=== PATIENT | male | born 1995 | race Two or more races ===

== ENCOUNTER 2024-08-04 15:11 | Inpatient (IN) | payer OTHER, SELFPAY ==
[2024-08-04] MEDS: Nicotine Polacrilex 2 MG GUM 4 MG BUCCAL ×2 (16:32→20:02)
[2024-08-04] MEDS: Buprenorphine/Naloxone 8/2 mg FILM 1 FILM SUBLINGUAL ×2 (16:42→20:09)
[2024-08-04 16:47] VITALS: BP 137/82; PULSE 95; RESP 18; TEMP 36.5; O2SAT 99
--- NOTE | 2024-08-04 17:09 | PC.NURSE ---
Pt arrived at 1530 from [facility] where he self presented. Pt is hyperverbal, religiously preoccupied and somewhat of a poor historian during intake. Pt reports having an argument with grandmother, with whom he is living and has been kicked out. Pt reported he was planning to be homeless but father convinced him to seek help at a local hospital. Upon arrival pt reports Im not like the other people here, I dont have mental issues . Pt states he has been drinking heavily in an effort to ween himself off of prescribed suboxone. No other prescribed meds. Pt MCMAHAN positive for marijuana and suboxone. Pt reports lengthy IV drug use history and numerous detoxes, though not for several years. Upon arrival to unit to was initially irritable requesting not to talk to anyone until he felt comfortable here. Pt quickly became comfortable and agreed to all parts of admission, did not sign releases at this time. Pt declines flu shot.
[2024-08-04 19:51] VITALS: BP 138/77; PULSE 81; TEMP 36.2; O2SAT 100
[2024-08-04] MEDS: OLANZapine 5 MG TABLET PO (20:09)
[2024-08-04] MEDS: LORazepam 1 MG TABLET 2 MG PO (20:09)
[2024-08-05 08:30] VITALS: BP 113/58; PULSE 55; RESP 16; TEMP 36.4; O2SAT 100
[2024-08-05] MEDS: Buprenorphine/Naloxone 8/2 mg FILM 1 FILM SUBLINGUAL ×3 (08:32→21:47)
[2024-08-05] MEDS: Folic Acid 1 MG TABLET PO (08:33)
[2024-08-05] MEDS: Multivitamin TABLET 1 TAB PO (08:33)
[2024-08-05] MEDS: Thiamine HCL 100 MG TABLET PO (08:37)
--- NOTE | 2024-08-05 09:52 | P.HPPS_ITS ---
HPI Date of Service: 08/05/24 Chief Complaint: Depression, SI, polysubstance abuse disorder Sources of Information: patient interviewed, chart reviewed and crisis/core team assessment reviewed HPI Subjective Notes: Lang Warning and Conditional Voluntary Healthcare Proxy: No Guardianship: No Medical Problems Affecting Mental Status: No Narrative: Seen 10am, and 2pm 28 yo male, presented with depression and SI after being asked to leave the family home. This resulted in an arrest and 72 hour incarceration. Reports cannabis and alcohol daily. Hx of opiate use, ADHD, PTSD and disruptive mood dysregulation disorder. He is unmedicated except for Suboxone and refuses psychotropic medications for mental health issues. He has difficulty in interview, asks to meet with only one person at a time. Worries he will say the incorrect thing. We met with pt x 2 at this request today. Expresses anger, agitation. Wantes to feel calmer, organize his thoughts and decrease lability. Self-dialogues, I hope all of you here and your family suffers and you all suffer for eternity. Reports a significant incarceration history. Past Psychiatric History: IP: 2019 Hx of detox admits OP: Denies Suboxone is telehealth Medical Evaluation Reviewed: Yes [facility] Medical History (Updated 08/05/24 @ 19:21 by Therese Macias, SHANNAN) PTSD (post-traumatic stress disorder) Alcohol use disorder Persistent mood [affective] disorder, unspecified Opioid use disorder Narrative: Hepatitis C Asthma Family History: pt does not discuss Social History: pt does not discuss Substance History: opiates, cannabis, alcohol Trauma History: affirms severe childhood trauma Diagnostics Vital Signs (24Hr): Vital Signs - 24 hr 08/04/24 16:47 08/04/24 19:51 08/05/24 08:30 Temperature 97.7 F 97.1 F 97.6 F Pulse Rate 95 81 55 Respiratory Rate 18 16 Blood Pressure 137/82 138/77 113/58 L Pulse Oximetry 99 100 100 Oxygen Delivery Method Room Air Room Air Room Air Meds/Allergies Meds Home Medications ?Medication ?Instructions ?Recorded ?Confirmed ?Type buprenorphine 8 mg-naloxone 2 mg 1 film buccal TID 08/04/24 08/04/24 History sublingual film (Suboxone) Allergies Allergies Allergy/AdvReac Type Severity Reaction Status Date / Time No Known Allergies Allergy Verified 12/04/24 15:23 Mental Status Exam Mental Status Exam Patient Appearance: Appropriate Patient Orientation: Person, Place, Time and Situation Level of Consciousness: Alert Patient Behavior: Talkative and Poor Eye Contact Mood Description: Depressed and Angry Affect Description: Flat Patient Cognition Impaired: No Ability to Follow Directions: Good Speech Pattern: Spontaneous Speech Memory Description: Episodic Impaired Hallucinations: None Delusions: Not Present Perceptual Disturbances: Depersonalization and Derealization Thought Process: Rumination Thought Content: positive for Perseveration and positive for Suicidal Ideation Depressive Symptoms: Thoughts of /Suicide Judgement: Fair Assessment & Plan Assessment & Plan (1) Opioid use disorder: Status: Acute Code(s): F11.90 - Opioid use, unspecified, uncomplicated (2) Persistent mood [affective] disorder, unspecified: Status: Acute Code(s): F34.9 - Persistent mood [affective] disorder, unspecified (3) Alcohol use disorder: Status: Acute Code(s): F10.90 - Alcohol use, unspecified, uncomplicated (4) PTSD (post-traumatic stress disorder): Status: Acute Code(s): F43.10 - Post-traumatic stress disorder, unspecified Plan PTSD, Mood Disorder, Opioid Use Disorder, Alcohol Use Disorder. Admit, CV, 15 minute checks TDN submitted Encourage milieu Pt declines medication assessment Collateral contact Discharge aftercare planning. Patient educated on: therapeutic strategies Reason for continued inpatient stay Substantial Risk for: harm to self, harm to others and rapid decompensation Statement Statement: I have reviewed the history and physical and performed a pertinent examination on my patient. No changes have occurred unless specified. If the History and Physical was not performed prior to admission, the Hospitalist's service will be consulted for completing the admission physical. Time Spent With Patient Time: Total time managing care of this patient today ____ minutes.
[2024-08-05] MEDS: Nicotine Polacrilex 2 MG GUM 4 MG BUCCAL ×4 (10:04→16:46)
[2024-08-05] MEDS: LORazepam 1 MG TABLET PO (10:16)
[2024-08-05] MEDS: LORazepam 1 MG TABLET 2 MG PO ×3 (11:10→22:07)
[2024-08-05] MEDS: Acetaminophen 325 MG TABLET 650 MG PO (22:02)
[2024-08-06 01:45] VITALS: BP 120/61; PULSE 78; TEMP 36.6; O2SAT 99
[2024-08-06] MEDS: hydrOXYzine HCL 25 MG TABLET PO ×2 (01:48→19:07)
[2024-08-06] MEDS: Nicotine Polacrilex 2 MG GUM 4 MG BUCCAL ×7 (01:49→23:43)
[2024-08-06] MEDS: LORazepam 1 MG TABLET PO ×5 (02:18→23:51)
[2024-08-06 09:55] VITALS: BP 122/82; PULSE 86; RESP 16; TEMP 36.6; O2SAT 100
[2024-08-06] MEDS: Buprenorphine/Naloxone 8/2 mg FILM 1 FILM SUBLINGUAL ×3 (09:55→20:17)
[2024-08-06] MEDS: Multivitamin TABLET 1 TAB PO (09:55)
[2024-08-06] MEDS: Folic Acid 1 MG TABLET PO (09:55)
[2024-08-06] MEDS: Thiamine HCL 100 MG TABLET PO (09:55)
--- NOTE | 2024-08-06 10:30 | P.PNPSI_ITS ---
Subjective Subjective Date of Service: 08/06/24 Reason For Visit: Depression, SI, polysubstance abuse disorder Subjective Notes: Conditional Voluntary and 3 Day Healthcare Proxy: No Guardianship: No Medical Problems Affecting Mental Status: No Interim History: Labile. Wanting treatment, however, due to history, significant mistrust of others. Ambivalent Discussed medicine for PTSD, mood stabilization. Asked pt what may we do to help him meet his goals. He is unsure Outbursts today regarding some issues. Team is attempting to work with pt to assist and build alliance. TDN to 08/10. Ambivalent on retracting. Wanting to reconnect with [facility], file for Section 8, find therapy, replace addiction with healthier coping mechanisms Medication Compliance: No Side effects from medications: No Attending Groups: No Review of Systems Acute medical concerns: No Review of Systems Review of Systems Yes all other systems are reviewed and are negative Mental Status Exam Mental Status Exam Patient Appearance: Appropriate Patient Orientation: Person, Place, Time and Situation Level of Consciousness: Alert Patient Behavior: Talkative and Poor Eye Contact Mood Description: Depressed and Angry Affect Description: Flat Patient Cognition Impaired: No Ability to Follow Directions: Good Speech Pattern: Spontaneous Speech Memory Description: Episodic Impaired Hallucinations: None Delusions: Not Present Perceptual Disturbances: Depersonalization and Derealization Thought Process: Rumination Thought Content: positive for Perseveration Judgement: Good Diagnostics Vital Signs (24Hr): Vital Signs - 24 hr 08/06/24 01:45 Temperature 97.8 F Pulse Rate 78 Blood Pressure 120/61 Pulse Oximetry 99 Oxygen Delivery Method Room Air Medications Medications Current Medications Acetaminophen (Acetaminophen 325 Mg Tablet) 650 mg PO Q6H PRN PRN Reason: Headache/Pain Mild Scale (1-3) Last Admin: 08/05/24 22:02 Dose: 650 mg Al Hydroxide/Mg Hydroxide (Magnesium Hydrox/Alum Hydrox 30 Ml Oral.Susp) 30 ml PO Q6H PRN PRN Reason: Heartburn/Nausea Buprenorphine/Naloxone (Buprenorphine/Naloxone 8/2 Mg Film) 1 film SUBLINGUAL TID KIERRA Last Admin: 08/06/24 09:55 Dose: 1 film Folic Acid (Folic Acid 1 Mg Tablet) 1 mg PO DAILY KIERRA Last Admin: 08/06/24 09:55 Dose: 1 mg Hydroxyzine HCl (Hydroxyzine Hcl 25 Mg Tablet) 25 mg PO Q6H PRN PRN Reason: Anxiety Last Admin: 08/06/24 01:48 Dose: 25 mg Lorazepam (Lorazepam 1 Mg Tablet) 1 mg PO Q4H PRN PRN Reason: ciwa 6-10 Last Admin: 08/06/24 10:00 Dose: 1 mg Lorazepam (Lorazepam 1 Mg Tablet) 2 mg PO Q4H PRN PRN Reason: ciwa 11+ Last Admin: 08/05/24 22:07 Dose: 2 mg Magnesium Hydroxide (Milk Of Magnesia 30 Ml Oral.Susp) 30 ml PO DAILY PRN PRN Reason: Constipation Multivitamins/Vitamin C (Multivitamin Tablet) 1 tab PO DAILY [facility] Last Admin: 08/06/24 09:55 Dose: 1 tab Nicotine (Nicotine 21 Mg Patch.Td24) 21 mg TRANSDERMA DAILY PRN PRN Reason: nicotine cravings Nicotine Polacrilex (Nicotine Polacrilex 2 Mg Gum) 4 mg BUCCAL Q2H PRN PRN Reason: Nicotine Cravings Last Admin: 08/06/24 10:08 Dose: 4 mg Olanzapine (Olanzapine 5 Mg Tablet) 5 mg PO Q4H PRN PRN Reason: agitation Last Admin: 08/04/24 20:09 Dose: 5 mg Thiamine HCl (Thiamine Hcl 100 Mg Tablet) 100 mg PO DAILY KIERRA Last Admin: 08/06/24 09:55 Dose: 100 mg Trazodone HCl (Trazodone Hcl 50 Mg Tablet) 50 mg PO BEDTIME MRX1 PRN PRN Reason: Insomnia Allergies Allergies Allergy/AdvReac Type Severity Reaction Status Date / Time No Known Allergies Allergy Verified 08/04/24 15:23 Assessment & Plan Assessment & Plan (1) Opioid use disorder: Status: Acute Code(s): F11.90 - Opioid use, unspecified, uncomplicated (2) Persistent mood [affective] disorder, unspecified: Status: Acute Code(s): F34.9 - Persistent mood [affective] disorder, unspecified (3) Alcohol use disorder: Status: Acute Code(s): F10.90 - Alcohol use, unspecified, uncomplicated (4) PTSD (post-traumatic stress disorder): Status: Acute Code(s): F43.10 - Post-traumatic stress disorder, unspecified Plan PTSD, Mood Disorder, Opioid Use Disorder, Alcohol Use Disorder. Admit, CV, 15 minute checks TDN submitted Encourage milieu Pt declines medication assessment Collateral contact Discharge aftercare planning. 08/06/24: TDN to 08/10. Encourage treatment Reason for continued inpatient stay Substantial Risk for: inability to function and rapid decompensation Time Spent With Patient Time: Total time managing care of this patient today ____ minutes.
[2024-08-06] MEDS: OLANZapine 5 MG TABLET PO (11:25)
[2024-08-06 20:00] VITALS: BP 119/57; PULSE 87; TEMP 36.4; O2SAT 100
--- NOTE | 2024-08-06 20:33 | PC.NURSE ---
Patient is very friendly, pleasant and engaged upon initial interaction this morning. He appropriately requested medications, compliant with scheduled meds. Received ativan per ciwa. requested zyprexa x1 for agitation. Later in shift, pt walked past nurses station and punched window. Entered room to talk with this marine underwriter. Pt verbalized frustration with all the staff and feels like they're all judging me because I'm an addict. Pt accusatory that all these people want to do is give me drugs. This marine underwriter reminded him that the sita prn meds he received today, were per his request. Pt was very frustrated and screaming loudly about being kept here like a detention. He made repeated provocative statements about destroying things and fighting. I'll make sure I do something to get me isolation. Why don't you people put me in 4 point restraints & inject me with haldol. After about 25minutes of talking pt de-escalated and quietly retreated to his bed. Pt has been more pleasant and calm this evening.
[2024-08-06 23:56] VITALS: BP 135/78; PULSE 89; TEMP 37.1; O2SAT 100
[2024-08-07 04:00] VITALS: BP 134/83; PULSE 110; RESP 18
[2024-08-07] MEDS: LORazepam 1 MG TABLET 2 MG PO ×2 (04:00→20:29)
[2024-08-07] MEDS: Nicotine Polacrilex 2 MG GUM 4 MG BUCCAL ×6 (04:02→23:06)
--- NOTE | 2024-08-07 06:30 | PC.NURSE ---
[facility] [place] Scot Dominguez reports that this patient was found in group room A, with his shirt off, doing yoga. [facility] [place] Dominguez redirected the patient at that time; the patient put his shirt back on and left that group room. On the way back to his room, the patient removed his shirt again and had to be redirected back to his room.
[2024-08-07 08:00] VITALS: BP 139/91; PULSE 91; RESP 18; TEMP 36.9; O2SAT 99
[2024-08-07] MEDS: OLANZapine 5 MG TABLET PO ×4 (08:18→23:06)
[2024-08-07] MEDS: Multivitamin TABLET 1 TAB PO (08:18)
[2024-08-07] MEDS: Thiamine HCL 100 MG TABLET PO (08:18)
[2024-08-07] MEDS: Folic Acid 1 MG TABLET PO (08:18)
[2024-08-07] MEDS: LORazepam 1 MG TABLET PO ×2 (08:18→13:19)
[2024-08-07] MEDS: Buprenorphine/Naloxone 8/2 mg FILM 1 FILM SUBLINGUAL ×3 (08:31→20:25)
--- NOTE | 2024-08-07 09:11 | HO.PSYCHPN ---
Subjective Subjective Date of Service: 08/07/24 Reason For Visit: Depression, SI, polysubstance abuse disorder Interim History: Met with patient; discussed with team Patient says he was overall doing well but got very upset with staff last night/early this morning feeling picked on. Patient said he was just doing yoga, took off his shirt and was taken back by how strongly he was reprimanded for it. Staff reported patient did say a threatening remark to specific staff member however was redirectable and otherwise remained in behavioral control. Patient today sharing that he wants to put this behind them, wants to squash it and reconcile. Otherwise does not want any medication management, saying he wants to take care of his issues without medication. Mental Status Exam Mental Status Exam Patient Appearance: Appropriate Patient Orientation: Person, Place, Time and Situation Level of Consciousness: Alert Patient Behavior: Talkative, Good Eye Contact and Impulsive Behavior Comments: Some agitation/aggressive response but situationally so Mood Description: Depressed and Angry (But less so) Affect Description: Constricted Patient Cognition Impaired: No Ability to Follow Directions: Fair Speech Pattern: Spontaneous Speech Memory Description: Episodic Impaired Hallucinations: None Delusions: Not Present Perceptual Disturbances: Depersonalization and Derealization Thought Process: Rumination Thought Content: positive for Perseveration Judgement and Insight: Impaired but likely close to baseline Diagnostics Vital Signs (24Hr): Vital Signs - 24 hr 08/06/24 09:55 08/06/24 20:00 08/06/24 23:56 Temperature 98 F 97.5 F 98.7 F Pulse Rate 86 87 89 Respiratory Rate 16 Blood Pressure 122/82 119/57 L 135/78 Pulse Oximetry 100 100 100 Oxygen Delivery Method Room Air Room Air Room Air 08/07/24 04:00 08/07/24 08:00 Temperature 98.4 F Pulse Rate 110 H 91 Respiratory Rate 18 18 Blood Pressure 134/83 139/91 H Pulse Oximetry 99 Oxygen Delivery Method Room Air Medications Medications Current Medications Acetaminophen (Acetaminophen 325 Mg Tablet) 650 mg PO Q6H PRN PRN Reason: Headache/Pain Mild Scale (1-3) Last Admin: 08/05/24 22:02 Dose: 650 mg Al Hydroxide/Mg Hydroxide (Magnesium Hydrox/Alum Hydrox 30 Ml Oral.Susp) 30 ml PO Q6H PRN PRN Reason: Heartburn/Nausea Buprenorphine/Naloxone (Buprenorphine/Naloxone 8/2 Mg Film) 1 film SUBLINGUAL TID [facility] Last Admin: 08/07/24 08:31 Dose: 1 film Folic Acid (Folic Acid 1 Mg Tablet) 1 mg PO DAILY [facility] Last Admin: 08/07/24 08:18 Dose: 1 mg Hydroxyzine HCl (Hydroxyzine Hcl 25 Mg Tablet) 25 mg PO Q6H PRN PRN Reason: Anxiety Last Admin: 08/06/24 19:07 Dose: 25 mg Lorazepam (Lorazepam 1 Mg Tablet) 1 mg PO Q4H PRN PRN Reason: ciwa 6-10 Last Admin: 08/07/24 08:18 Dose: 1 mg Lorazepam (Lorazepam 1 Mg Tablet) 2 mg PO Q4H PRN PRN Reason: ciwa 11+ Last Admin: 08/07/24 04:00 Dose: 2 mg Magnesium Hydroxide (Milk Of Magnesia 30 Ml Oral.Susp) 30 ml PO DAILY PRN PRN Reason: Constipation Multivitamins/Vitamin C (Multivitamin Tablet) 1 tab PO DAILY [facility] Last Admin: 08/07/24 08:18 Dose: 1 tab Nicotine (Nicotine 21 Mg Patch.Td24) 21 mg TRANSDERMA DAILY PRN PRN Reason: nicotine cravings Nicotine Polacrilex (Nicotine Polacrilex 2 Mg Gum) 4 mg BUCCAL Q2H PRN PRN Reason: Nicotine Cravings Last Admin: 08/07/24 08:18 Dose: 4 mg Olanzapine (Olanzapine 5 Mg Tablet) 5 mg PO Q4H PRN PRN Reason: agitation Last Admin: 08/07/24 08:18 Dose: 5 mg Thiamine HCl (Thiamine Hcl 100 Mg Tablet) 100 mg PO DAILY [facility] Last Admin: 08/07/24 08:18 Dose: 100 mg Trazodone HCl (Trazodone Hcl 50 Mg Tablet) 50 mg PO BEDTIME MRX1 PRN PRN Reason: Insomnia Allergies Allergies Allergy/AdvReac Type Severity Reaction Status Date / Time No Known Allergies Allergy Verified 08/04/24 15:23 Assessment & Plan Assessment & Plan (1) Opioid use disorder: Status: Acute Code(s): F11.90 - Opioid use, unspecified, uncomplicated (2) Persistent mood [affective] disorder, unspecified: Status: Acute Code(s): F34.9 - Persistent mood [affective] disorder, unspecified (3) Alcohol use disorder: Status: Acute Code(s): F10.90 - Alcohol use, unspecified, uncomplicated (4) PTSD (post-traumatic stress disorder): Status: Acute Code(s): F43.10 - Post-traumatic stress disorder, unspecified Plan PTSD, Mood Disorder, Opioid Use Disorder, Alcohol Use Disorder. Admit, CV, 15 minute checks TDN submitted Encourage milieu Pt declines medication assessment Collateral contact Discharge aftercare planning. 08/06/24: TDN to 08/10. Encourage treatment 08/07 continue current treatment plan; patient does not want medication management Patient educated on: diagnosis and therapeutic strategies Informed Consent: understands and further education needed Reason for continued inpatient stay Substantial Risk for: rapid decompensation Time Spent With Patient Time: Total time managing care of this patient today ____ minutes.
[2024-08-07 20:00] VITALS: RESP 15
[2024-08-07] MEDS: traZODone HCL 50 MG TABLET PO ×2 (20:29→23:06)
[2024-08-07] MEDS: hydrOXYzine HCL 25 MG TABLET PO (20:29)
[2024-08-08] MEDS: LORazepam 1 MG TABLET PO ×5 (00:18→23:48)
[2024-08-08] MEDS: OLANZapine 5 MG TABLET PO ×2 (05:14→17:06)
[2024-08-08] MEDS: Nicotine Polacrilex 2 MG GUM 4 MG BUCCAL ×6 (05:17→23:48)
[2024-08-08 08:00] VITALS: RESP 16
--- NOTE | 2024-08-08 10:36 | HO.PSYCHPN ---
Subjective Subjective Date of Service: 08/08/24 Reason For Visit: Depression, SI, polysubstance abuse disorder Interim History: met with patient; discussed with team pt intermittently in conflict with staff which seems to be triggered by anxiety/misunderstandings/high expressed emotion/some paranoia.... Pt did not sleep last night, saying he did not trust staff; instead slept this morning. Does not want scheduled Zyrpexa but likes taking it PRN when he feels need. otherwise, pt mostly doing well during day shift, going to groups, appropriate w/ peers. no longer needs [facility] Mental Status Exam Mental Status Exam Patient Appearance: Appropriate Patient Orientation: Person, Place, Time and Situation Level of Consciousness: Alert Patient Behavior: Guarded, Talkative, Good Eye Contact and Impulsive Behavior Comments: Some agitation/aggressive response but situationally so Mood Description: Depressed and Angry (But less so) Affect Description: Constricted Patient Cognition Impaired: No Ability to Follow Directions: Fair Speech Pattern: Spontaneous Speech Memory Description: Episodic Impaired Hallucinations: None Delusions: Not Present Perceptual Disturbances: Depersonalization and Derealization Thought Process: Rumination Thought Content: positive for Perseveration Judgement and Insight: Impaired but likely close to baseline Diagnostics Vital Signs (24Hr): Vital Signs - 24 hr 08/07/24 20:00 Respiratory Rate 15 Medications Medications Current Medications Acetaminophen (Acetaminophen 325 Mg Tablet) 650 mg PO Q6H PRN PRN Reason: Headache/Pain Mild Scale (1-3) Last Admin: 08/05/24 22:02 Dose: 650 mg Al Hydroxide/Mg Hydroxide (Magnesium Hydrox/Alum Hydrox 30 Ml Oral.Susp) 30 ml PO Q6H PRN PRN Reason: Heartburn/Nausea Buprenorphine/Naloxone (Buprenorphine/Naloxone 8/2 Mg Film) 1 film SUBLINGUAL TID KIERRA Last Admin: 08/08/24 09:20 Dose: Not Given Folic Acid (Folic Acid 1 Mg Tablet) 1 mg PO DAILY [facility]IER[facility] Last Admin: 08/07/24 08:18 Dose: 1 mg Hydroxyzine HCl (Hydroxyzine Hcl 25 Mg Tablet) 25 mg PO Q6H PRN PRN Reason: Anxiety Last Admin: 08/07/24 20:29 Dose: 25 mg Lorazepam (Lorazepam 1 Mg Tablet) 1 mg PO Q4H PRN PRN Reason: ciwa 6-10 Last Admin: 08/08/24 05:14 Dose: 1 mg Lorazepam (Lorazepam 1 Mg Tablet) 2 mg PO Q4H PRN PRN Reason: ciwa 11+ Last Admin: 08/07/24 20:29 Dose: 2 mg Magnesium Hydroxide (Milk Of Magnesia 30 Ml Oral.Susp) 30 ml PO DAILY PRN PRN Reason: Constipation Multivitamins/Vitamin C (Multivitamin Tablet) 1 tab PO DAILY [facility] Last Admin: 08/07/24 08:18 Dose: 1 tab Nicotine (Nicotine 21 Mg Patch.Td24) 21 mg TRANSDERMA DAILY PRN PRN Reason: nicotine cravings Nicotine Polacrilex (Nicotine Polacrilex 2 Mg Gum) 4 mg BUCCAL Q2H PRN PRN Reason: Nicotine Cravings Last Admin: 08/08/24 05:17 Dose: 4 mg Olanzapine (Olanzapine 5 Mg Tablet) 5 mg PO Q4H PRN PRN Reason: agitation Last Admin: 08/08/24 05:14 Dose: 5 mg Thiamine HCl (Thiamine Hcl 100 Mg Tablet) 100 mg PO DAILY [facility] Last Admin: 08/07/24 08:18 Dose: 100 mg Trazodone HCl (Trazodone Hcl 50 Mg Tablet) 50 mg PO BEDTIME MRX1 PRN PRN Reason: Insomnia Last Admin: 08/07/24 23:06 Dose: 50 mg Allergies Allergies Allergy/AdvReac Type Severity Reaction Status Date / Time No Known Allergies Allergy Verified 08/04/24 15:23 Assessment & Plan Assessment & Plan (1) Opioid use disorder: Status: Acute Code(s): F11.90 - Opioid use, unspecified, uncomplicated (2) Persistent mood [affective] disorder, unspecified: Status: Acute Code(s): F34.9 - Persistent mood [affective] disorder, unspecified (3) Alcohol use disorder: Status: Acute Code(s): F10.90 - Alcohol use, unspecified, uncomplicated (4) PTSD (post-traumatic stress disorder): Status: Acute Code(s): F43.10 - Post-traumatic stress disorder, unspecified Plan PTSD, Mood Disorder, Opioid Use Disorder, Alcohol Use Disorder. Admit, CV, 15 minute checks TDN submitted Encourage milieu Pt declines medication assessment Collateral contact Discharge aftercare planning. 08/06/24: TDN to 08/10. Encourage treatment 08/07 continue current treatment plan; patient does not want medication management 08/08 pt intermittently in conflict with staff which seems to be triggered by anxiety/misunderstandings/high expressed emotion/some paranoia.... Pt did not sleep last night, saying he did not trust staff; instead slept this morning. Does not want scheduled Zyrpexa but likes taking it PRN when he feels need. -otherwise, pt mostly doing well during day shift, going to groups, appropriate w/ peers. -no longer needs [facility]; will DC ativan prn for CIWA but since he's been getting up to 4-6mg daily for past few days, will make Ativan 1mg TID PRN -pt wants to DC Friday Patient educated on: therapeutic strategies Informed Consent: understands Reason for continued inpatient stay Substantial Risk for: stable for discharge Time Spent With Patient Time: Total time managing care of this patient today ____ minutes.
[2024-08-08] MEDS: Thiamine HCL 100 MG TABLET PO (12:34)
[2024-08-08] MEDS: Folic Acid 1 MG TABLET PO (12:34)
[2024-08-08] MEDS: Multivitamin TABLET 1 TAB PO (12:34)
[2024-08-08] MEDS: Buprenorphine/Naloxone 8/2 mg FILM 1 FILM SUBLINGUAL ×3 (12:34→20:38)
[2024-08-08 20:30] VITALS: BP 137/86; PULSE 97; TEMP 36.6
[2024-08-08] MEDS: Acetaminophen 325 MG TABLET 650 MG PO (21:14)
[2024-08-09] MEDS: LORazepam 1 MG TABLET PO ×3 (02:54→13:24)
[2024-08-09] MEDS: Nicotine Polacrilex 2 MG GUM 4 MG BUCCAL ×2 (02:54→12:00)
[2024-08-09] MEDS: traZODone HCL 50 MG TABLET PO (02:54)
[2024-08-09 08:00] VITALS: BP 99/49; PULSE 72; RESP 16; TEMP 36.8; O2SAT 99
[2024-08-09] MEDS: Buprenorphine/Naloxone 8/2 mg FILM 1 FILM SUBLINGUAL (09:28)
[2024-08-09] MEDS: Folic Acid 1 MG TABLET PO (09:29)
[2024-08-09] MEDS: Thiamine HCL 100 MG TABLET PO (09:29)
[2024-08-09] MEDS: Multivitamin TABLET 1 TAB PO (09:30)
--- NOTE | 2024-08-09 09:41 | P.DS_ITS ---
DS: Providers Provider Date of Service: 08/09/24 Date of admission: 08/04/24 15:11 Date of discharge: 08/09/24 Primary care physician: Unknown Physician Admitting clinician: Therese Macias Attending physician on admission: Antwan Montoya Attending physician on discharge: Antwan Montoya Discharging clinician: Therese Macias DS: Diagnosis Discharge Diagnosis (1) Opioid use disorder: Status: Acute (2) Persistent mood [affective] disorder, unspecified: Status: Acute (3) Alcohol use disorder: Status: Acute (4) PTSD (post-traumatic stress disorder): Status: Acute DS: Medications Discharge Medications Home Medications: Home Medications ?Medication ?Instructions ?Recorded ?Confirmed buprenorphine 8 mg-naloxone 2 mg 1 film buccal TID 08/04/24 08/04/24 sublingual film (Suboxone) Mental Status Exam Mental Status Exam Patient Appearance: Appropriate Patient Orientation: Person, Place, Time and Situation Level of Consciousness: Alert Patient Behavior: Guarded, Talkative, Good Eye Contact and Impulsive Behavior Comments: Some agitation/aggressive response but situationally so Mood Description: Depressed and Angry (But less so) Affect Description: Constricted Patient Cognition Impaired: No Ability to Follow Directions: Fair Speech Pattern: Spontaneous Speech Memory Description: Episodic Impaired Hallucinations: None Delusions: Not Present Perceptual Disturbances: Depersonalization and Derealization Thought Process: Rumination Thought Content: positive for Perseveration Judgement and Insight: Impaired but likely close to baseline DS: Summary Hospital Course Hospital Course: Admission to adult psychiatry for exacerbation of Mood Disorder, PTSD, Personality Disorder and Alcohol,Opiate, Cannabis use. Precipitant pt reports is being asked to leave the family home, arrested, incarcerated for 72 hours with resulting SI. Pt reports a long hx of incarceration. Medications were evaluated and pt refused this intervention, citing a manipulative health care system and his not wanting to participate in this. Pt did attend some groups. He engaged in conflicts on the unit with peers and team which were not conducive to treatment progress. He verbalized he was not interested in further treatment and declined referrals upon discharge. Status at Discharge Functional status at discharge: independent ambulation Overall status at discharge: patient is back to baseline Time Spent with Patient Time attestation: Total time managing care of this patient today ____ minutes. Time spent: Less than 30 minutes Discharge Plan Discharge Anticipated Discharge Date/Time: 08/09/24 12:00 Patient Disposition: Xfer Other Discharge Diagnosis: PTSD Mood Disorder Personality Disorder Opiate Use Disorder Alcohol Use Disorder Referrals: Physician,Brett J [Primary Care Provider] - 1 Week Discharge Medications: New naloxone [Narcan] 4 mg/actuation spray,non-aerosol 4 mg intranasal Q2M PRN (Reason: opioid overdose) Qty: 2 0RF Rx Instructions: spray 1 dose into ONE nostril; alternate nostrils w each dose until help arrives Continued buprenorphine-naloxone [Suboxone] 8-2 mg Film 1 film BUCCAL TID Discharge Orders: Discharge Order (Routine); Ordered 08/09/24 Ordered By: Therese Macias Diet: Advance to usual diet Activity on Discharge: As tolerated Stand Alone Forms: Patient Portal Discharge page, Community Support Print Language: [place]ian Care Plan Goals: Mood and Behavioral Stabilization Abstinence from substances Health Concerns: Mood and Behavioral Stabilization Abstinence from substances Plan of Treatment: Pt declined treatment while in patient. -Declined scheduled psychiatric medications, except for Suboxone -Declined Suboxone referral upon discharge, however, team reports he made contract with his Suboxone provider on 08/06/24 requesting refills. -Pt signed a three day notice during his admission, retracting 08/08/24. -Per team he engaged in several conflicts that were not conducive to positive treatment outcomes. -Declined referrals for ongoing care. Assessment: Awake, alert, resistant to participating in planning at this time. Discharge Date/Time: 08/09/24 13:42
--- NOTE | 2024-08-09 14:46 | PC.NURSE ---
Late Entry for 08/09/24 13:42 --RN and patient reviewed/signed DC instructions. Pt verbalizes understanding of plan. All belongings inventoried and returned to patient. Patient discharged to [facility], with all belongings in possession. Pt has bus schedule and will take bus to his destination. Pt unsure where he plans to go next. Pt verbalizes optimism and is future focused. He states he feels his stay here was beneficial to him & he's ready to move on.
== END 2024-08-09 13:42 | disposition other institution (70) | DRG 753 ==
PROVIDERS: Admitting Provider Clinical Nurse Specialist Psychiatric/Mental Health, Adult; Visit Provider Clinical Nurse Specialist Psychiatric/Mental Health, Adult
DX: F34.9 Persistent mood [affective] disorder, unspecified (principal); R45.851 Suicidal ideations; F10.90 Alcohol use, unspecified, uncomplicated; F11.20 Opioid dependence, uncomplicated; F17.210 Nicotine dependence, cigarettes, uncomplicated; F60.9 Personality disorder, unspecified; Z71.6 Tobacco abuse counseling; F19.10 Other psychoactive substance abuse, uncomplicated; F43.10 Post-traumatic stress disorder, unspecified

== ENCOUNTER → 2024-08-04 15:11 | Outpatient (BNV) | payer OTHER, SELFPAY | PROVIDERS: Admitting Provider Clinical Nurse Specialist Psychiatric/Mental Health, Adult; Visit Provider Clinical Nurse Specialist Psychiatric/Mental Health, Adult | DX: F34.9 Persistent mood [affective] disorder, unspecified (principal); F11.90 Opioid use, unspecified, uncomplicated; F10.90 Alcohol use, unspecified, uncomplicated; F43.11 Post-traumatic stress disorder, acute | CPT/HCPCS: 99231; 99232 ==